=== PATIENT | female | born 1980 | race African-American/Black ===

== ENCOUNTER 2016-04-22 22:35 | Inpatient (IN) | payer OTHER ==
[2016-04-22] MEDS ORDERED: BUTORPHANOL TARTRATE 1 MG/ML VIAL IVPUSH ONE (23:16)
[2016-04-22] MEDS ORDERED: PROMETHAZINE HCL 25 MG/1 ML VIAL IVPUSH ONE (23:16)
[2016-04-22] MEDS ORDERED: LACTATED RINGERS SOLUTION 1,000 ML IV SCH (23:30)
[2016-04-23] MEDS ORDERED: DEXTROSE 5%-LACTATED RINGERS 1,000 ML IV SCH (00:30)
[2016-04-23 00:32] LABS: BASOPHIL 0.7 % (0-2.0); MCHC 31.7 g/dl (32.0-36.0); MEAN PLT VOLUME 7.3 fl (7.5-11.1); NEUTROPHILS 78.5 % (42.8-82.8); PLATELET COUNT 285 K/MM3 (134-434); RDW 13.7 % (11.6-15.6); WHITE BLOOD COUNT 9.5 K/mm3 (4.0-10.0)
[2016-04-23 00:47] LABS: INR 0.97 (0.82-1.09); PROTHROMBIN TIME (PATIENT) 10.7 SEC (9.98-11.88)
[2016-04-23 00:48] VITALS: BMI 41.1
[2016-04-23 00:50] LABS: ACTIVATED PTT 28.3 SECONDS (26.9-34.4)
[2016-04-23 01:03] LABS: CALCIUM 9.1 mg/dL (8.5-10.1); CREATININE 0.5 mg/dL (0.55-1.02)
[2016-04-23 01:14] LABS: HIV 1 & 2 AB NEGATIVE; HIV 1 AGp24 NEGATIVE
--- NOTE | 2016-04-23 03:11 | HP ---
Past Medical History - Primary Care Physician PCP:: Dev Esqueda - Admission Chief Complaint: 38.3 weeks, labor History of Present Illness: 35 yo f g 3 [id number] EDC 05/03/16 c/o contraction , no rom, no bleeding, cx 1 cm 80 vx -2 mi, fhr cat 1, contraction q 2 min History Source: Patient Limitations to Obtaining History: No Limitations - Past Medical History ...: 3 ...Para: 1 ...Term: 1 ...: 0 ...Spon : 0 ...Induced : 1 ...Multiple Gestation: 0 ...LMP: 07/29/15 ... Weeks Gestation by Dates: 38.2 ...EDC by Dates: 05/04/16 ...EDC by Sono: 05/03/16 - Past Surgical History Hx Myomectomy: No Hx Transabdominal Cerclage: No - Smoking History Smoking history: Never smoked Have you smoked in the past 12 months: No - Alcohol/Substance Use Hx Alcohol Use: No - Social History Usual Living Arrangement: Yes: With Spouse History of Recent Travel: No Home Medications - Allergies Allergies/Adverse Reactions: Allergies Allergy/AdvReac Type Severity Reaction Status Date / Time No Known Drug Allergies Allergy Verified 04/23/16 00:57 - Home Medications Home Medications: Ambulatory Orders [id number]/Iron Fumarate/FA/Dss [ 19 Tablet] 1 each PO DAILY 04/23/16 Review of Systems - Review of Systems Constitutional: reports: No Symptoms Eyes: reports: No Symptoms HENT: reports: No Symptoms Neck: reports: No Symptoms Cardiovascular: reports: No Symptoms Respiratory: reports: No Symptoms Gastrointestinal: reports: No Symptoms Genitourinary: reports: No Symptoms Breasts: reports: No Symptoms Reported Musculoskeletal: reports: No Symptoms Integumentary: reports: No Symptoms Neurological: reports: No Symptoms Endocrine: reports: No Symptoms Hematology/Lymphatic: reports: No Symptoms Psychiatric: reports: No Symptoms Physical Exam - Maternity Vital Signs: Vital Signs Temperature 98.0 F 04/23/16 02:00 Pulse Rate 79 04/23/16 02:00 Respiratory Rate 18 04/23/16 02:00 Blood Pressure 116/55 04/23/16 02:00 O2 Sat by Pulse Oximetry (%) Constitutional: Yes: Obese Eyes: Yes: WNL, Occular Prosthesis HENT: Yes: Nasal Congestion Neck: Yes: WNL Cardiovascular: Yes: WNL Breast(s): Yes: WNL - Abdominal Exam/OB Number of Fetuses: Single Presentation: Vertex Contractions: Yes Regularity: Regular Intensity: Mod/Strong Monitor Mode: External Heart Rate Location: LLQ Accelerations: Uniform Decelerations: None - Vaginal Exam/OB Vaginal Bleediing: No Speculum Exam: No Dilatation (cm): 1 cm Effacement (%): 80 Amniotic Membrane Status: Bulging Presentation: Vertex/Position Station: -2 - Physical Exam Musculoskeletal: Yes: WNL Extremities: Yes: WNL Edema: Yes Edema: LLE: Trace, RLE: Trace Deep Tendon Reflex Grade: Normal +2 ...Motor Strength: WNL, LLE Psychiatric: Yes: WNL - Labs Lab Results: CBC, BMP 04/23/16 00:15 04/23/16 00:15 Hemorrhage Risk Assessment - Risk Factors Medium Risk Factors: Yes: None High Risk Factors: Yes: None Risk Score: 1 Risk Level: Medium Risk Problem List - Problems (1) with 38 completed weeks gestation Code(s): Z3A.38 - 38 WEEKS GESTATION OF (2) Labor established Code(s): [id number] - Assessment/Plan admit, fhm, ,pain management
[2016-04-23] MEDS ORDERED: oxyCODONE HCL 5 MG TABLET PO PRN (03:13)
[2016-04-23] MEDS ORDERED: METHYLERGONOVINE MALEATE 0.2 MG/1 ML AMP IM PRN (03:13)
[2016-04-23] MEDS ORDERED: BENZOCAINE 20% 57 GM BOTTLE TP PRN (03:13)
[2016-04-23] MEDS ORDERED: BENZOCAINE 28 GM HEMORRHOIDAL OINTMENT TP PRN (03:13)
[2016-04-23] MEDS ORDERED: BISACODYL 10 MG SUPP.RECT RC PRN (03:13)
[2016-04-23] MEDS ORDERED: ACETAMINOPHEN 325 MG TABLET (FP) PO PRN (03:13)
[2016-04-23] MEDS ORDERED: WITCH HAZEL 50% (TUCKS) 40 PAD/JAR PAD TP PRN (03:13)
[2016-04-23] MEDS ORDERED: D5W-LR W/ 20 UNITS OXYTOCIN 1,000 ML IV SCH (03:15)
[2016-04-23] MEDS ORDERED: TUBERCULIN PPD 5 TU/0.1ML SYRINGE (IN PATIENT USE ONLY) ID ONE (09:00)
[2016-04-23] MEDS: FERROUS SO4 325 MG TABLET (FP) PO SCH ×2 (10:28→21:37)
[2016-04-23] MEDS: PRENATAL VITAMINS W/ FOLIC ACID TABLET (FP) PO SCH (10:28)
[2016-04-23] MEDS: IBUPROFEN 600 MG TABLET (FP) PO PRN ×2 (10:55→21:37)
[2016-04-24 07:51] LABS: BASOPHIL 0.7 % (0-2.0); EOSINOPHIL 2.8 % (0-4.5); MCH 27.5 pg (25.7-33.7); MCHC 33.3 g/dl (32.0-36.0); MEAN CELL VOLUME 82.5 fl (80-96); MEAN PLT VOLUME 7.3 fl (7.5-11.1); NEUTROPHILS 67.4 % (42.8-82.8); PLATELET COUNT 270 K/MM3 (134-434); RDW 13.9 % (11.6-15.6); WHITE BLOOD COUNT 8.8 K/mm3 (4.0-10.0)
[2016-04-24] MEDS: FERROUS SO4 325 MG TABLET (FP) PO SCH ×2 (09:36→21:08)
[2016-04-24] MEDS: PRENATAL VITAMINS W/ FOLIC ACID TABLET (FP) PO SCH (09:36)
[2016-04-24] MEDS: IBUPROFEN 600 MG TABLET (FP) PO PRN (09:37)
--- NOTE | 2016-04-24 11:48 | PN ---
Progress Note (short form) - Note Progress Note: ppd 1 doing well, no c/o voids ok CBC, BMP 04/24/16 06:15 04/23/16 00:15 Last Vital Signs Temp Pulse Resp BP Pulse Ox 98.1 F 80 18 109/65 100 04/24/16 10:29 04/24/16 10:29 04/24/16 10:29 04/24/16 10:29 04/23/16 04:00 abdomen soft, no distension, no cva utrus firm, non tender lochia mild no calf tenderness plan ambulate ,plan for d/c home in am Problem List - Problems (1) with 38 completed weeks gestation Code(s): Z3A.38 - 38 WEEKS GESTATION OF (2) Labor established Code(s): SRJ4741 -
[2016-04-24] MEDS ORDERED: SENNOSIDES/DOCUSATE COMBO (SENNA PLUS) TABLET (UD) PO PRN (22:00)
[2016-04-25 08:38] VITALS: BP 110/75; PULSE 68; TEMP 98.1
--- NOTE | 2016-04-25 09:30 | PN ---
Progress Note (short form) - Note Progress Note: ppd 1 doing well, no c/o ,voids ok CBC, BMP 04/24/16 06:15 04/23/16 00:15 Last Vital Signs Temp Pulse Resp BP Pulse Ox 98.1 F 68 20 110/75 100 04/25/16 08:36 04/25/16 08:36 04/25/16 08:36 04/25/16 08:36 04/23/16 04:00 abdomen soft, non tender, uterus firm, non tender lochia mild no calf tenderness plan ambulate, plan for d/c home in am Problem List - Problems (1) with 38 completed weeks gestation Code(s): Z3A.38 - 38 WEEKS GESTATION OF (2) Labor established Code(s): [id number] -
[2016-04-25] MEDS: PRENATAL VITAMINS W/ FOLIC ACID TABLET (FP) PO SCH (09:55)
[2016-04-25] MEDS: FERROUS SO4 325 MG TABLET (FP) PO SCH (09:55)
== END 2016-04-25 16:10 | disposition home or self-care (01) | DRG 775 ==
LOC: JDEL 22:35 → JLDR 23:10 → J3W 04-23 04:39
PROVIDERS: ADMIT Obstetrics & Gynecology; ATTEND Obstetrics & Gynecology
PROC: 10E0XZZ Delivery of Products of Conception, External Approach (ICD-10-PCS; principal; 2016-04-23)
DX: O80 Encounter for full-term uncomplicated delivery (principal); Z3A.38 38 weeks gestation of pregnancy; Z37.0 Single live birth
CPT/HCPCS: 36415; 59409; 71020-TC; 80048; 85025; 85610; 85730; 86593; 86850; 86900; 86901; 87389

== ENCOUNTER 2017-12-16 07:11 | Day surgery (SDC) | payer OTHER ==
[2017-12-15 08:49] VITALS: BMI 36.3
--- NOTE | 2017-12-16 07:53 | HP ---
[facility] - Chief Complaint Chief Complaint: This patient is here totake care of her missed problem. History of Present Illness: The patient's LMP was 10/15/17. The patient is with a missed and comes to have a vacuum D/C to terminate this abortive . History Source: Patient Limitations to Obtaining History: No Limitations - Past Medical History Allergies/Adverse Reactions: Allergies Allergy/AdvReac Type Severity Reaction Status Date / Time No Known Drug Allergies Allergy Verified 04/23/16 00:57 CRIB CLERK: No: Alzheimer's, CVA, Dementia, Migraine, Multiple Sclerosis, Peripheral Neuropathy, Parkinson's, Seizure, Syncope, TIA, Vertigo, Other Cardiovascular: No: AFIB, Aneurysm, Aortic Insufficiency, Aortic Stenosis, CAD, CHF, Deep Vein Thrombosis, HTN, Hyperlipdemia, HI, Mitral Insufficiency, Mitral Stenosis, Murmur, Pulmonary Hypertension, Other Pulmonary: No: Asthma, Bronchitis, Cancer, COPD, O2 Dependent, Pneumonia, Previously Intubated, Pulmonary Embolus, Pulmonary Fibrosis, Sleep Apnea, Other Gastrointestinal: No: Ascites, Cancer, Constipation, Crohn's Disease, Diverticulitis, Diverticulosis, Esophageal Varices, Gastritis, GERD, GI Bleed, Hemorrhoids, Hiatal Hernia, Inflamatory Bowel Disease, Irritable Bowel Disease, Pancreatitis, Peptic Ulcer Disease, Ulcerative Colitis, Other Renal/: No: Renal Failure, Renal Inusuff, BPH, Cancer, Hematuria, Hemodialysis , Neurogenic Bladder, Renal Calculi, UTI, Other Reproductive: No: Ectopic , Endometriosis, Fibroids, PID, Polycystic Ovary Syndrome, Postmenopausal, Other ...LMP: 10/15/17 ...: Yes (with missed ) ...: 4 ...Para: 2 Heme/Onc: No: Anemia, B12 Deficiency, Bleeding Disorder, Cancer, Current Chemotherapy, Current Radiation Therapy, Hemochromatosis, Hypercoaguable State, Myeloproliferative Synd, Sickle Cell Disease, Sickle Cell Trait, Thrombocytopenia, Other Infectious Disease: No: AIDS, C-Diff, Herpes Zoster, HIV, MRSA, STD's, Tuberculosis, VREF, Other Musculoskeletal: No: Bursitis, Chronic low back pain, Hemiparesis, Hemiplegia, Osteoarthritis, Paraplegia, Other Rheumatology: No: Fibromyalgia, Gout, Lupus, Rheumatoid Arthritis, Sarcoidosis, Vasculitis, Other ENT: No: Allergic Rhinitis, Sinusitis, Other Endocrine: No: Izaiah's Disease, Anna's Disease, Diabetes Insipidus, Diabetes Mellitus, Hyperparathyroidism, Hyperthyroidism, Hypothyroidism, Osteopenia, SIADH, Other Dermatology: No: Basal Cell, Cellulitis, Eczema, Melanoma, Psoriasis, Squamous Cell, Other - Current Medications Current Medications: Home Medications Medication Instructions Recorded Prenat 115/Iron Fum/Folic/Dss 1 each PO DAILY 04/23/16 [ 19 Tablet] Ibuprofen [Motrin -] 600 mg PO QID #28 tablet 04/24/16 Aspirin/Acetaminophen/Caffeine 1 each PO PRN 12/15/17 [Excedrin Migraine Caplet] Satellite Physical Exam - Physical Examination Vital Signs: Vital Signs Period Temp Pulse Resp BP Sys/Arrington Pulse Ox Last 24 Hr 98.5 F-98.5 F 82-82 20-20 118-118/75-75 99 General Appearance: Well Nourished, Well Developed, Alert & Oriented x3 ENT: Clear, No Discharge, No masses Lung: Clear to auscultation Heart: Regular rate & rhythm, Normal S1, Normal S2 Breasts: Soft, Non-Tender, No masses bilaterally Abdomen: Soft, No tenderness, No CVA Extremities: No edema, No tenderness/swelling Pelvic Exam: Within normal limits External Genitalia, Within normal limits Vagina, Within normal limits Cervix, Within normal limits [place], Other Uterus (enlarged) Neurological: Intact, Alert, Oriented Satellite Impression/Plan - Impression/Plan Impression: Missed Operative Procedure: Suction D/C Date to be Performed: 12/16/17
[2017-12-16] MEDS ORDERED: ONDANSETRON 4 MG/2 ML VIAL IVPUSH PRN (08:11)
[2017-12-16] MEDS ORDERED: oxyCODONE HCL 5 MG TABLET PO PRN (08:11)
[2017-12-16] MEDS ORDERED: MIDAZOLAM HCL 2 MG/2 ML SINGLE DOSE VIAL ONE (08:12)
[2017-12-16] MEDS ORDERED: LACTATED RINGERS SOLUTION 1,000 ML IV SCH (08:15)
[2017-12-16] MEDS ORDERED: DEXAMETHASONE SOD PHOSPHATE 4 MG/1 ML VIAL ONE (08:32)
[2017-12-16] MEDS ORDERED: LIDOCAINE HCL/PF 2% SDV 5ML VIAL ONE (08:32)
[2017-12-16] MEDS ORDERED: PROPOFOL 20 ML ONE ×2 (08:36→08:44)
[2017-12-16 09:39] VITALS: TEMP 98
--- NOTE | 2017-12-16 09:56 | OP ---
DATE OF OPERATION: 12/16/2017 PREOPERATIVE DIAGNOSIS: Missed 6 to 8 weeks. OPERATIVE PROCEDURE: Vacuum curettage. SURGEON: David Hercules MD ESTIMATED BLOOD LOSS: Approximately 10 mL. DESCRIPTION OF PROCEDURE: The patient was brought to the operating room, placed in the supine position, given MAC anesthesia by Dr. Fernández, placed in the lithotomy position, prepped and draped in the usual manner. The patient was examined. The uterus was noted to be enlarged 6 to 8 weeks. Adnexa negative. A speculum was placed into the vagina. The anterior lip of the cervix was grasped with a tenaculum. The cervix was opened. A No. 7 vacuum curette was inserted and vacuum curettage was applied. Products of conception were obtained. The patient tolerated the procedure well. The estimated blood loss was approximately 10 mL. The patient did well. The products of conception were sent to Pathology for analysis. After the operation was completed, the tenaculum was removed from the cervix, and the speculum was removed from the vagina. The patients hemostasis was good. Her estimated blood loss again was 10 mL. DAVID HERCULES M.D. [id number]
[2017-12-16 10:43] VITALS: BP 107/65; PULSE 73
--- NOTE | 2017-12-19 16:31 | PATH ---
Surgical Pathology Report Patient Name: LUIS ALFREDO JACOBO [facility]. Rec. #: [id number] /Age/Gender: 1980 (Age: 37) / F Account: [id number] Location: [facility] Taken: 12/16/2017 Received: 12/16/2017 Reported: 12/19/2017 Physicians: Collin Lopez M.D. Specimen(s) Received PRODUCTS OF CONCEPTION Clinical History Missed Final Diagnosis PRODUCTS OF CONCEPTION, DILATION AND CURETTAGE: IMMATURE CHORIONIC VILLI, GESTATIONAL ENDOMETRIUM, AND DECIDUA CONSISTENT WITH PRODUCTS OF CONCEPTION. Electronically Signed Elvia Reyes M.D. Gross Description Received in formalin labeled "products of conception," is a 7.5 x 6.0 x 0.8 cm aggregate of cosme red soft tissue fragments. No definite villous tissue or somatic tissue is identified. A compliance representative dealer portion is submitted in 3 cassettes. /12/16/2017 saudi12/16/2017
== END 2017-12-16 10:40 | disposition home or self-care (01) ==
LOC: JASU-SURG 07:11
PROVIDERS: ATTEND Obstetrics & Gynecology
PROC: 10D17ZZ Extraction of Products of Conception, Retained, Via Natural or Artificial Opening (ICD-10-PCS; principal; 2017-12-16 08:30)
DX: O02.1 Missed abortion (principal)
CPT/HCPCS: 84703; 86850; 86900; 86901; 88305-TC; 94760

== ENCOUNTER 2018-03-15 03:56 | Emergency (ER) | payer OTHER ==
--- NOTE | 2018-03-15 04:03 | PDOC ---
History of Present Illness - General Stated Complaint: S.O.B. Time Seen by Provider: 03/15/18 04:02 - History of Present Illness Initial Comments: 03/15/18 04:03 Ms. Brown is a 37 yo female w/ no significant pmh who presents for evaluation of 2 day history of cough with coinciding chest/back discomfort upon coughing. Patient reports she has a coworker with bronchitis and endorses post-nasal drip and the beginnings of a sore throat. Denies any other coinciding symptoms. Decided to present this morning as she was cleaning her house and experienced an increase in her coughing. The patient denies headache and dizziness. Denies fever, chills, nausea, vomit, diarrhea and constipation. Denies dysuria, frequency, urgency and hematuria. Past History - Past Medical History Allergies/Adverse Reactions: Allergies Allergy/AdvReac Type Severity Reaction Status Date / Time No Known Drug Allergies Allergy Verified 03/15/18 04:10 Home Medications: Ambulatory Orders Acetaminophen [Tylenol -] 1,000 mg PO DAILY PRN 03/15/18 Anemia: No Asthma: No Cancer: No Cardiac Disorders: No CVA: No COPD: No CHF: No Dementia: No Diabetes: No GI Disorders: No Disorders: No HTN: No Hypercholesterolemia: No Liver Disease: No Seizures: No Thyroid Disease: No - Suicide/Smoking/Psychosocial Hx Smoking History: Never smoked Have you smoked in the past 12 months: No Hx Alcohol Use: Yes (OCCAS) Drug/Substance Use Hx: No Substance Use Type: None Hx Substance Use Treatment: No Review of Systems - Review of Systems Comments:: 03/15/18 04:18 GENERAL/CONSTITUTIONAL: No fever or chills. No weakness. HEAD, EYES, EARS, NOSE AND THROAT: No change in vision. No ear pain or discharge. No sore throat. CARDIOVASCULAR: +Chest/back discomfort only upon coughing. RESPIRATORY: +2 days of cough as described. No hemoptysis. GASTROINTESTINAL: No nausea, vomiting, diarrhea or constipation. GENITOURINARY: No dysuria, frequency, or change in urination. MUSCULOSKELETAL: No joint or muscle swelling or pain. No neck pain. SKIN: No rash NEUROLOGIC: No headache, vertigo, loss of consciousness, or change in strength/ sensation. ENDOCRINE: No increased thirst. No abnormal weight change HEMATOLOGIC/LYMPHATIC: No anemia, easy bleeding, or history of blood clots. ALLERGIC/IMMUNOLOGIC: No hives or skin allergy. *Physical Exam - Physical Exam Comments: 03/15/18 04:19 GENERAL: Awake, alert, and fully oriented, in no acute distress HEAD: No signs of trauma, normocephalic, atraumatic EYES: PERRLA, EOMI, sclera anicteric, conjunctiva clear ENT: Auricles normal inspection, hearing grossly normal, nares patent, oropharynx clear without exudates. Moist mucosa NECK: Normal ROM, supple, no lymphadenopathy, JVD, or masses LUNGS: No distress, speaks full sentences, clear to auscultation bilaterally HEART: Regular rate and rhythm, normal S1 and S2, no murmurs, rubs or gallops, peripheral pulses normal and equal bilaterally. ABDOMEN: Soft, nontender, normoactive bowel sounds. No guarding, no rebound. No masses EXTREMITIES: Normal inspection, Normal range of motion, no edema. No clubbing or cyanosis. NEUROLOGICAL: Cranial nerves II through XII grossly intact. Normal speech, normal gait, no focal sensorimotor deficits SKIN: Warm, Dry, normal turgor, no rashes or lesions noted. ED Treatment Course - LABORATORY CBC & Chemistry Diagram: 03/15/18 04:26 03/15/18 04:26 Medical Decision Making - Medical Decision Making 03/15/18 04:19 Ms. Brown is a 37 yo female w/ pmh as described who presents for evaluation of symptoms c/w cough 2/2 viral illness. Will evaluate for strep and flu as well as other acute causes. 03/15/18 05:41 EKG regular rate, regular rhythm, normal access, normal interval, no ST elevations or depressions. Normal EKG. 03/15/18 06:10 Labs grossly wnl as below. Flu negative. Currently pending rapid strep for d/c. 03/15/18 06:19 Rapid strep negative. No concern for acute process at this time. Discharging to home. *DC/Admit/Observation/Transfer Diagnosis at time of Disposition: Cough - Discharge Dispostion Disposition: HOME - Referrals - Patient Instructions Printed Discharge Instructions: DI for Cough -- Adult Additional Instructions: You were evaluated today in the ED for your cough. Chest xray was negative. No concerning findings were found at this time. We believe these symptoms were caused by a viral illness. You may take over the counter motrin or tylenol per package instructions for pain relief. Follow-up with primary care provider in 2- 3 days for further evaluation as needed. Return to ER if any fever, chills, or other concerning symptoms. - Post Discharge Activity
[2018-03-15 04:14] VITALS: BP 126/92; PULSE 100; TEMP 97.4; BMI 34.7
--- NOTE | 2018-03-15 04:14 | PDOC ---
Attending Attestation - HPI HPI: 03/15/18 04:15 The patient is a 37 year old female, with no significant past medical history, who presents to the emergency department with 2 days of cough and post nasal drip. She states she was cleaning around 3AM in preparation for a move and developed exacerbation of her cough when she attempted to rest after cleaning. She reports back pain and chest pain with coughing, but denies the pain when she is not coughing. The patient denies chest pain, shortness of breath, headache and dizziness. The patient denies fever, chills, nausea, vomit, diarrhea and constipation. The patient denies dysuria, frequency, urgency and hematuria. Allergies: NKDA - Physicial Exam PE: 03/15/18 04:15 GENERAL: The patient is in no acute distress. HEAD: Normal with no signs of trauma. EYES: PERRLA, EOMI, sclera anicteric, conjunctiva clear. ENT: Ears normal, nares patent, oropharynx clear without exudates. Moist mucous membranes. NECK: Normal range of motion, supple without lymphadenopathy, JVD, or masses. LUNGS: Breath sounds equal, clear to auscultation bilaterally. No wheezes, and no crackles. HEART:Regular rate and rhythm, normal S1 and S2 without murmur, rub or gallop. ABDOMEN: Soft, nontender, normoactive bowel sounds. No guarding, no rebound. No masses palpable. EXTREMITIES: Normal range of motion, no edema. No clubbing or cyanosis. No erythema, or tenderness. NEUROLOGICAL: Cranial nerves II through XII grossly intact. Normal speech. No focal neurological deficits. MUSCULOSKELETAL: Back non-tender to palpation, no CVA tenderness SKIN: Warm, Dry, normal turgor, no rashes or lesions noted. - Medical Decision Making 03/15/18 04:15 Documentation prepared by Bessie Prajapati, acting as medical coding instructor for Zara Eldridge MD <Bessie Prajapati - Last Filed: 03/15/18 04:15> - Resident Resident Name: Torsten Gil - ED Attending Attestation I have performed the following: I have examined & evaluated the patient, The case was reviewed & discussed with the resident, I agree w/resident's findings & plan, Exceptions are as noted - Medical Decision Making 37 yo F presenting with shortness of breath and cough No wheezing No chest pain No recent travel No lower extremity 03/15/18 04:21 EKG - Twelve-lead EKG was performed and reviewed by me. There is normal sinus rhythm with a normal rate. The axis is normal. The intervals are normal. There are no ST or T wave abnormalities. Impression: Normal twelve-lead EKG Labs CXR 03/15/18 06:24 CXR - negative Influenza negative Rapid Strep negatve <Zara Eldridge - Last Filed: 03/15/18 06:27>
[2018-03-15 04:39] LABS: HEMATOCRIT 35.6 % (32.4-45.2); HEMOGLOBIN 12.3 GM/dL (10.7-15.3); LYMPH % 30.6 % (8-40); MCH 26.8 pg (25.7-33.7); MCHC 34.5 g/dl (32.0-36.0); MEAN CELL VOLUME 77.7 fl (80-96); MEAN PLT VOLUME 7.2 fl (7.5-11.1); NEUT % 54.6 % (42.8-82.8); PLATELET COUNT 350 K/MM3 (134-434); RBC 4.58 M/mm3 (3.60-5.2); RDW 13.3 % (11.6-15.6); WHITE BLOOD COUNT 5.1 K/mm3 (4.0-10.0)
[2018-03-15 04:40] LABS: BASO % 0.9 % (0-2.0); EOS % 5.6 % (0-4.5); MONO % 8.3 % (3.8-10.2)
[2018-03-15 05:01] LABS: ALBUMIN 3.7 g/dl (3.4-5.0); ALK PHOS 69 U/L (45-117); ANION GAP 8 MMOL/L (8-16); BILIRUBIN,TOTAL 0.2 mg/dL (0.2-1); BLOOD UREA NITROGEN 13 mg/dL (7-18); CALCIUM 8.7 mg/dL (8.5-10.1); CHLORIDE 104 mmol/L (98-107); CO2 26 mmol/L (21-32); CREATININE 0.8 mg/dL (0.55-1.3); GLUCOSE,RANDOM 100 mg/dL (74-106); POTASSIUM 4.3 mmol/L (3.5-5.1); SGOT/AST 16 U/L (15-37); SGPT/ALT 19 U/L (13-61); SODIUM 139 mmol/L (136-145); TOT PROT 7.6 g/dl (6.4-8.2)
--- NOTE | 2018-03-15 12:45 | EKG ---
Test Reason : Blood Pressure : / mmHG Vent. Rate : 096 BPM Atrial Rate : 096 BPM P-R Int : 152 ms QRS Dur : 076 ms QT Int : 360 ms P-R-T Axes : 058 016 011 degrees QTc Int : 454 ms NORMAL SINUS RHYTHM NORMAL ECG NO PREVIOUS ECGS AVAILABLE Confirmed by JANY NY, IVANNA ([id number]) on 03/15/2018 12:44:48 PM Referred By: Confirmed By:IVANNA CARMICHAEL MD
== END 2018-03-15 06:27 | disposition home or self-care (01) ==
LOC: JER 03:56
DX: R05 Cough (principal)
CPT/HCPCS: 36415; 71046-TC-FY; 80053; 84703; 85025; 87070; 87804; 87880; 93005; 93010; 99282-25